=== PATIENT | female | born 1985 | race Two or more races ===

== ENCOUNTER 2017-06-25 01:06 | Emergency (ER) | payer BC ==
[~2017-06-25] VITALS: Ht 160 cm; Wt 89.8 kg
--- NOTE | 2017-06-25 02:05 | NUR ---
RECEIIVED PT [id number], AMBULATORY, IN NO DISTRESS, C/O OF DIZZINESS WHILE SITTING DOWNOR WALKING,NO NEURO DEFICIT NOTED, DENIES CP/SOB,NAUSEA/VOMITING, PT PLACED ON MANAGING DIRECTOR ATLAS, BED IN LOWEST POSITION, LOCKED, HOB UP, SR UP X2 FOR SAFETY, CB WITHIN REACH, WILL CONTINUE WITH POC
[2017-06-25 02:18] LABS: BASOPHILS % (AUTO) 0.1 % (0.0-2.0); EOSINOPHILS # (AUTO) 0.1 K/uL (0.0-0.7); EOSINOPHILS % (AUTO) 0.8 % (0.0-7.0); HEMATOCRIT 39.3 % (31.2-41.9); HEMOGLOBIN 13.4 g/dL (10.9-14.3); LYMPHOCYTES # (AUTO) 4.5 K/uL (20.0-40.0); LYMPHOCYTES % (AUTO) 28.5 % (20.5-51.5); MEAN CORPUSCULAR HEMOGLOBIN 31.5 uug (24.7-32.8); MEAN CORPUSCULAR HGB CONC 34 g/dL (32.3-35.6); MEAN CORPUSCULAR VOLUME 92.2 fL (75.5-95.3); MONOCYTES # (AUTO) 1.4 K/uL (2.0-10.0); NEUTROPHILS # (AUTO) 9.7 K/uL (1.8-8.9); NEUTROPHILS % (AUTO) 61.6 % (38.5-71.5); PLATELET COUNT (AUTO) 311 K/uL (179-408); RED BLOOD CELL COUNT(AUTO) 4.26 MIL/uL (3.63-4.92); WHITE BLOOD COUNT (AUTO) 15.8 K/uL (3.8-11.8)
[2017-06-25 02:21] LABS: CREATININE 1.1 mg/dL (0.6-1.3); POTASSIUM 3.3 mmol/L (3.5-5.1)
[2017-06-25 02:27] LABS: BILIRUBIN,DIRECT 0.1 mg/dL (0.0-0.2); BILIRUBIN,TOTAL 0.1 mg/dL (0.2-1.0); TOTAL PROTEIN, SERUM 6.9 g/dL (6.4-8.2)
[2017-06-25 02:56] VITALS: BP 143/56
--- NOTE | 2017-06-25 03:00 | NUR ---
PT IN NO DISTRESS, PT ADVISED TO F/U WITH PMD OR RETURN TO ER FOR WORSENING OF SYMPTOMS,VERBALIZES UNDERTANDING.RX GIVEN TO PT
== END 2017-06-25 03:06 | disposition home or self-care (01) ==
LOC: ER 01:09
DX: H81.10 Benign paroxysmal vertigo, unspecified ear (principal)
CPT/HCPCS: 36415; 84703; 85025; 93005; A4663